=== PATIENT | female | born 1990 | race Caucasian/White ===

== ENCOUNTER 2018-08-01 16:09 | Observation (INO) | payer OTHER ==
[~2018-08-01] VITALS: Ht 160 cm; Wt 98.0 kg
[~2018-08-01 16:09] MED LIST: BACTRIM DS TAB1 EACH PO
[2018-08-01 16:22] VITALS: BP 182/105
[2018-08-01 16:44] LABS: URINE BILIRUBIN NEGATIVE (Negative); URINE BLOOD 3+ (Negative); URINE CLARITY CLEAR; URINE COLOR YELLOW; URINE GLUCOSE-RANDOM NEGATIVE (Negative); URINE KETONES NEGATIVE (Negative); URINE LEUKOCYTES-REFLEX 1+ (Negative); URINE NITRITE-REFLEX NEGATIVE (Negative); URINE PROTEIN TRACE (Negative); URINE SPECIFIC GRAVITY >= 1.030 (1.005-1.030); URINE UROBILINOGEN 0.2 E.U./dl (0.2-1.0)
[2018-08-01 16:47] LABS: CRYSTALS None Seen /LPF (None Seen); HYALINE CASTS 0-3 Few /LPF (None Seen); MUCUS 0-3 Light strn/LPF (None Seen); SQUAMOUS 0-3 Few /LPF (0-3)
[2018-08-01 16:48] LABS: BACTERIA-REFLEX 1-9 Few /HPF (None Seen); URINE RBC 3-10 Few /HPF (0-2); URINE WBC-REFLEX 0-5 Rare /HPF (0-5)
[2018-08-01 16:54] LABS: ABSOLUTE BASOPHILS 0.1 thou/uL (0.0-0.2); ABSOLUTE EOSINOPHILS 0.1 thou/uL (0.0-0.7); ABSOLUTE LYMPHOCYTES 3.9 thou/uL (0.8-5.3); ABSOLUTE NEUTROPHILS 10.3 thou/uL (1.6-8.1); BASOPHILS 0.7 %; EOSINOPHILS 0.6 %; HEMATOCRIT 42.9 % (37.0-47.0); HEMOGLOBIN 14.5 gm/dL (12.0-15.0); LYMPHOCYTES 25.4 %; MCHC 33.9 g/dL (28.0-37.0); MCV 88.5 fL (80.0-100.0); MONOCYTES 6.2 %; MPV 9.6 fl. (7.2-11.1); NUCLEATED RBCS 0 /100WBC; PLATELET COUNT* 250 thou/uL (150-400); POLYS 67.1 %; RBC 4.84 mil/uL (4.20-5.00); RDW-CV 12.8 % (10.5-14.5); WBC 15.3 thou/uL (4.0-11.0)
[2018-08-01 17:02] LABS: CALCIUM 8.9 mg/dL (8.5-10.1); CREATININE 0.9 mg/dL (0.6-1.3); POTASSIUM 3.4 mmol/L (3.5-5.1)
[2018-08-01 17:07] LABS: ALBUMIN 4.3 g/dL (3.4-5.0); TOTAL BILIRUBIN 0.3 mg/dL (<0.1-1.0); TOTAL PROTEIN 7.5 g/dL (6.4-8.2)
[2018-08-01 20:15] VITALS: BP 131/78
[2018-08-01 20:30] VITALS: BP 148/88
[2018-08-02] VITALS: BP 146/92
--- NOTE | 2018-08-02 02:42 | NUR ---
PT RECEIVED FROM ED AT 2024. SAT MAINTAINED IN RA. ALERT AND ORIENTED X4. CALL LIGHT WITHIN REACH AND BED IN LOW POSITION. PT C/O PAIN, MEDICATION GIVEN PER EMAR. PT VOMITED 30ML, MEDICATION GIVEN. SIGNIFICANT OTHER PRESENT AT BEDSIDE.
[2018-08-02 05:04] LABS: HEMATOCRIT 38.1 % (37.0-47.0); HEMOGLOBIN 13.1 gm/dL (12.0-15.0); MCH 30.2 pg (26.0-34.0); MCHC 34.3 g/dL (28.0-37.0); MCV 88.1 fL (80.0-100.0); MPV 10.2 fl. (7.2-11.1); RBC 4.32 mil/uL (4.20-5.00); RDW-CV 12.6 % (10.5-14.5)
[2018-08-02 05:13] LABS: ALBUMIN 3.3 g/dL (3.4-5.0); CALCIUM 8.3 mg/dL (8.5-10.1); CREATININE 0.7 mg/dL (0.6-1.3); POTASSIUM 3.5 mmol/L (3.5-5.1); TOTAL BILIRUBIN 0.4 mg/dL (<0.1-1.0); TOTAL PROTEIN 6.1 g/dL (6.4-8.2)
--- NOTE | 2018-08-02 07:45 | NUR ---
RECEIVED REPORT. ASSUMED CARE OF PT AT 0730. VSS. PT MED-SURG STATUS. PT ON RA. IVF INFUSING PER ORDERS. PT ALERT AND ORIETNED. PT DENIES ANY PAIN THIS AM. PT ON CLEAR LIQUIDS. PT REPORTS IMPROVEMENTS IN SYMPTOMS. PT IS UP AD JANEL. PT INFORMED OF PLAN OF CARE. PT COMMUNICATES UNDERSTANDING. CALL LIGHT IS WITHIN REACH. WILL CONTINUE TO MONITOR FOR DURATION OF SHIFT.
[2018-08-02 08:15] VITALS: BP 151/86
[2018-08-02 13:03] VITALS: BP 151/86
[2018-08-02] MEDS ORDERED: FLOMAX0.4 MG PO (13:03)
[2018-08-02] MEDS ORDERED: NORCO 5-325 TA1 EACH PO (13:03)
--- NOTE | 2018-08-04 08:26 | CON ---
[address] [address] CONSULTATION Name: MARTINESMANFRED ROSEMARY Room: [address] Tammie Moran#: [id number] Admission: 08/01/18 Attend Phys: Jigar Reyes MD Discharge: 08/02/18 Date of : 88 Report #: [id number] THIS REPORT FOR: //name// CC: FAM physician/PCP Jigar Reyes DATE OF SERVICE: 08/02/2018 UROLOGY CONSULTATION REFERRING PHYSICIAN: Jigar Reyes MD. REASON FOR CONSULTATION: Right flank pain and ureteral calculus. HISTORY OF PRESENT ILLNESS: This is a 28-year-old female with no known history of stones. She had fairly acute onset of right-sided flank pain radiating to the right lower quadrant and bladder yesterday. The pain became unremitting and was accompanied by nausea and vomiting. She presented to the Emergency Department and was admitted for further evaluation and management. Urology was consulted. She reports the pain has improved significantly since admission and she is currently not having any pain. She complained of frequency, urgency and stranguria at the onset of symptoms, but reports those have improved. She denies fever or chills. Denies hematuria. Denies slow stream or straining. She has not noted any fragment passage. She denies prior history of kidney disease. She denies any other recent illness. PAST MEDICAL HISTORY: As above. She states she is otherwise healthy. There is some history of borderline hypertension. ALLERGIES: No known drug allergies. MEDICATIONS: She takes no routine home medications. CURRENT MEDICATION: List is reviewed. She was started on Rocephin empirically due to her urinalysis. FAMILY HISTORY: Significant for stone disease in an aunt. No other kidney disease in the family. SOCIAL HISTORY: She does not smoke. She drinks alcohol occasionally. REVIEW OF SYSTEMS: As per the history of present illness. No chest pain, shortness of breath, palpitations or cough. A 12-point review of systems is otherwise negative. PHYSICAL EXAMINATION: [place] [address] CONSULTATION Name: MANFRED MARTINES Room: [address] Tammie Moran#: [id number] Admission: 08/01/18 Attend Phys: Jigar Reyes MD Discharge: 08/02/18 Date of : 88 Report #: [id number] VITAL SIGNS: Temperature 36.7, pulse 90, respirations 18, blood pressure 151/86. GENERAL: This is a 28-year-old female in no acute distress. She is awake, alert and oriented x 3. She answers questions appropriately. HEENT: Normocephalic and atraumatic. Extraocular movements are intact. Oropharynx is clear. NECK: Supple. No JVD. RESPIRATORY: Effort and excursion are normal. CARDIOVASCULAR: Rhythm is regular. ABDOMEN: Soft, nontender, and nondistended. She has no spinal or costovertebral angle tenderness. Bladder is nontender and nonpalpable. Exam does not reproduce her symptoms. EXTREMITIES: Warm. Moves all extremities well. No peripheral edema. Radial pulses are palpable. SKIN: Normal. LABORATORY DATA: Include sodium 139, potassium 3.5, chloride 104, CO2 of 26, BUN 9, creatinine 0.7, glucose 96. Hemoglobin 13.1, white count 13.0, platelet count 221,000. test negative. Urinalysis revealed 3-10 red cells, 0-5 white cells, few epithelial cells, and few bacteria. This may represent contaminant. I requested a urine culture when consulted by the Emergency Department, but this was not obtained on review of the pending laboratory studies. I have reordered a urine culture to be done on the specimen already in the lab (prior to antibiotics). Blood cultures are pending. Noncontrast CT scan of the abdomen and pelvis was performed. Those images were reviewed and discussed with the patient. This reveals tiny bilateral renal calculi as well as right hydronephrosis and a 4 mm stone at the right ureterovesical junction. Findings were discussed at length with the patient. We discussed options for management including conservative management, medical expulsive therapy, shockwave lithotripsy, ureteroscopic stone manipulation. Those procedures and their pros and cons were discussed in detail. She has been started on Flomax and her urine is being strained. After discussion of options, she would like to be treated with medical expulsive therapy on an outpatient basis. There is a prescription on her chart already for [place]. I added a prescription for daily tamsulosin. I advised her regarding side effects of those medications. We also had a discussion about indications for intervention including signs or symptoms of UTI, poor pain control, intractable nausea and vomiting. She was advised that if she is discharged by the Internal Medicine service, she should return for poor pain control, intractable nausea and vomiting, fever over 101 or other concerns. Otherwise, we can work on arranging outpatient followup regarding this stone episode and the prevention of future stones. IMPRESSION: Right flank pain, right ureterovesical junction calculus. PLAN: Medical expulsive therapy with Flomax. Oral pain medication. Okay for discharge from a urology standpoint. Follow up with me in approximately 1-[address] [place] [address] CONSULTATION Name: MANFRED MARTINES Room: [address] Tammie Moran#: [id number] Admission: 08/01/18 Attend Phys: Jigar Reyes MD Discharge: 08/02/18 Date of : 88 Report #: [id number] weeks. Strain all urine for stones and bring any stone collected to the office for analysis. Return for concerns as noted above. Await culture data. <ELECTRONICALLY SIGNED> By: Ej Antoine MD 08/04/18 0826 [id number] Antoine MD /nt
== END 2018-08-02 13:40 | disposition home or self-care (01) ==
LOC: M.ERS 16:09 → M.TBA-ER 18:03 → M.2W 18:03
PROVIDERS: Nurse Practitioner Family
DX: N13.2 Hydronephrosis with renal and ureteral calculous obstruction (principal); N39.0 Urinary tract infection, site not specified